=== PATIENT | female | born 1995 | race Caucasian/White ===

== ENCOUNTER 2018-12-23 12:14 | Outpatient (CLI) | payer OTHER | END 2018-12-23 14:44 | disposition home or self-care (01) | LOC: LAB 12:14 | DX: D06.7 Carcinoma in situ of other parts of cervix (principal); R79.89 Other specified abnormal findings of blood chemistry; N39.0 Urinary tract infection, site not specified; D64.89 Other specified anemias; Z01.818 Encounter for other preprocedural examination ==

== ENCOUNTER → 2019-01-01 | Day surgery (SDC) | payer OTHER | END | disposition home or self-care (01) | LOC: ADM 12-29 12:30 → EDSTATUS 12-29 12:30 → CIR.AMB 05:22 | DX: N87.1 Moderate cervical dysplasia (principal) ==